=== PATIENT | male | born 1990 | race Caucasian/White ===

== ENCOUNTER 2019-01-10 22:44 | Emergency (ER) | payer OTHER ==
[2019-01-10 23:00] VITALS: BP 119/71; PULSE 69; TEMP 98.1; BMI 34.0
--- NOTE | 2019-01-10 23:52 | PDOC ---
Attending Attestation - HPI HPI: 01/11/19 00:03 The patient is a 28 year old male with no significant past medical history who presents to the emergency department with worsening lower left back mass. The patient states he endorses pain with palpation, movement, and putting weight on it. The patient states he has had this pain for the past year but has never been treated. The patient denies skin changes, midline back pain, incontinence night sweats, weight loss, or any other bodily lumps or rashes. The patient denies chest pain, shortness of breath, headache and dizziness. Denies fever, chills, nausea, vomit, diarrhea and constipation. Denies dysuria, frequency, urgency and hematuria. Allergies: NKDA Past surgical history: none reported Social history: None reported PCP: Kathryn Coffman - Physicial Exam PE: 01/11/19 00:04 GENERAL: Awake, alert, and fully oriented, in no acute distress HEAD: No signs of trauma EYES: PERRLA, EOMI, sclera anicteric, conjunctiva clear ENT: Auricles normal inspection, hearing grossly normal, nares patent, oropharynx clear without exudates. Moist mucosa NECK: Normal ROM, supple, no lymphadenopathy, JVD, or masses LUNGS: Breath sounds equal, clear to auscultation bilaterally. No wheezes, and no crackles HEART: Regular rate and rhythm, normal S1 and S2, no murmurs, rubs or gallops ABDOMEN: (+) L lower back mass. Soft, nontender, normoactive bowel sounds. No guarding, no rebound. No masses EXTREMITIES: Normal range of motion, no edema. No clubbing or cyanosis. No cords, erythema, or tenderness NEUROLOGICAL: Cranial nerves II through XII grossly intact. Normal speech, normal gait SKIN: Warm, Dry, normal turgor, no rashes or lesions noted. <Ansley Abbott - Last Filed: 01/11/19 00:03> - Resident Resident Name: Marai Berry - ED Attending Attestation I have performed the following: I have examined & evaluated the patient, The case was reviewed & discussed with the resident, I agree w/resident's findings & plan - Medical Decision Making 01/11/19 01:13 Patient Name: YUMIKO LOCKWOOD THIS IS A PRELIMINARY REPORT FROM IMAGING RN FIRST ASSISTANT DATE OF SERVICE: 2019-01-11 00:05:02 IMAGES: 32 EXAM: SOFT TISSUE CHEST AND BACK US HISTORY: Left lateral back mass now painful COMPARISON: None. FINDINGS: There is a 3 cm x 1.3 cm x 4.7 cm masslike focus in the area of concern in the left lateral back. I do not believe it can be characterized specifically on the ultrasound. CT, or MRI would be more accurate in more specifically characterizing the type of mass and its relationship to adjacent soft tissues. (If the mass suddenly became painful, there could be blood within it). Area is not cystic, and is likely a muscle spasm. Pt will be advised to get an MRI if the pain doesn't go away and if he feels worse. 01/11/19 01:20 Pt will go home with muscle relaxant and motrin. He was made aware that muscle relaxants cause drowsiness. <Maryjo Tuttle - Last Filed: 01/11/19 01:21> Attestations - Attestations 01/11/19 00:05 Documentation prepared by Ansley Abbott, acting as medical assistant per diem for Maryjo Tuttle MD <Ansley Abbott - Last Filed: 01/11/19 00:03>
[2019-01-10] MEDS ORDERED: ACETAMINOPHEN 500 MG TABLET (FP) PO ONE (23:55)
--- NOTE | 2019-01-10 23:55 | PDOC ---
History of Present Illness - General Chief Complaint: Pain, Acute Stated Complaint: CYST IN LOWER BACK Time Seen by Provider: 01/10/19 23:34 History Source: Patient Exam Limitations: No Limitations - History of Present Illness Initial Comments: 01/10/19 23:43 28YOM without PMH p/w left lower back cyst which is causing him pain with palpation, movement, and putting weight on it. Has had this for the past year but has never been treated for it or seen a doctor. Denies f/c/n/v/d/c, n/t/w focally, skin changes, midline back pain, incontinencenight sweats, weight loss , additional bodily lumps/bumps, or other concerning symptoms. Past History - Past Medical History Allergies/Adverse Reactions: Allergies Allergy/AdvReac Type Severity Reaction Status Date / Time No Known Allergies Allergy Verified 01/10/19 23:39 Home Medications: Ambulatory Orders Acetaminophen [Tylenol] 650 mg PO PRN 01/11/19 Methocarbamol [Robaxin -] 500 mg PO BID #60 tablet 01/11/19 CVA: No COPD: No - Immunization History Immunization Up to Date: Yes - Suicide/Smoking/Psychosocial Hx Smoking History: Never smoked Have you smoked in the past 12 months: No Information on smoking cessation initiated: No Hx Alcohol Use: No Drug/Substance Use Hx: No Substance Use Type: None Review of Systems - Review of Systems Able to Perform ROS?: Yes Comments:: 01/10/19 23:57 GEN: no fever, chills, malaise, night sweats, generalized weakness, or weight change HEENT: no ear pain, sore throat, vision change, or eye pain CV: no chest pain, palpitations, lightheadedness, syncope, or edema RESP: no cough, wheezing, or SOB GI: no abdominal pain, nausea, vomiting, diarrhea, constipation, or white/black/ bloody stool : no dysuria, hematuria, incontinence, retention, bleeding, or discharge MSK: no neck/back pain, muscle weakness/pain, or joint swelling/pain NEURO: no headache, seizure, vertigo, numbness, tingling, or focal weakness PSYCH: no substance use, no behavior change SKIN: left low back painful lump, no jaundice, no rash ROS otherwise negative except as noted in HPI *Physical Exam - Vital Signs Last Vital Signs Temp Pulse Resp BP Pulse Ox 98.1 F 69 20 119/71 100 01/10/19 22:59 01/10/19 22:59 01/10/19 22:59 01/10/19 22:59 01/10/19 22:59 - Physical Exam Comments: 01/10/19 23:55 GENERAL: well-appearing, A/Ox4, no distress, answers questions appropriately, primarily Polish-speaking, obese HEENT: PERRLA, EOMI, moist mucous membranes NECK/BACK: no midline ttp, no spinal stepoff or deformity, no hematoma, full ROM , neck supple CARDIOVASCULAR: regular rate/rhythm, normal S1S2, no MGR, strong peripheral pulses, capillary refill <2 seconds, extremities wwp, no edema LUNGS/RESPIRATORY: no respiratory distress, CTAB GI/ABDOMEN: symmetric [id number], normoactive BS, soft, no ttp, no midline pulsatile masses : no CVA tenderness EXTREMITIES: no muscle atrophy, no acute deformity SKIN: left lumbar paraspinous area with 2x2cm mobile slightly tender firm mass deep within the soft tissue but just superficial to the muscle, no overlying skin changes, skin otherwise warm and dry, no pallor, no jaundice, no rash, no bruising, no skin breakdown, no cuts, no lesions NEUROLOGICAL: GCS 15, CN II-XII grossly intact, 5/5 strength proximally and distally, no facial droop Medical Decision Making - Medical Decision Making 01/10/19 23:57 28YOM p/w left low back painful lump. No known h/o MRSA, no known immune compromise. Initial Vital Signs Temp Pulse Resp BP Pulse Ox 98.1 F 69 20 119/71 100 01/10/19 22:59 01/10/19 22:59 01/10/19 22:59 01/10/19 22:59 01/10/19 22:59 Exam: As noted in Physical Exam section. DDX IBNLT: most likely sebaceous cyst, muscle spasm, or possibly lymph node. Less likely abscess given the fact that the patient has had this for 1 year. Less likely lipoma as this mass is firm. Unlikely MRSA infection as the patient has not had this before, anglion cyst W/U ordered: US soft tissue TX ordered: Tylenol, Robaxin US/SOFT TISSUE CHEST AND BACK US Patient states left lateral back moving mass for years. Now painful. Ultrasound soft tissue of the chest and back Grayscale and color Doppler images of the left lateral side of the back, region of interest were obtained and submitted for evaluation. There is an oval-shaped superficial masslike density in the region of interest measuring 4.7 x 3 x 1.3 cm likely representing a lipoma. IMPRESSION: Likely a lipoma in the left lateral back, region of interest measuring 4.7 x 3 x 1.3 cm. Confirmation of its consistency with MRI or CT scan would be the study of choice for further evaluation considering the clinical history of new pain. Reassessment: Patient states feels much better, comfortable with plan to go home with PCP f/u. DISCHARGE E-Rx is sent to their pharmacy for Robaxin and they will take this and Tylenol prn pain/muscle spasm. Workup is not concerning for emergency-level pathology at this time. The Pt is appropriate for discharge with close outpatient follow up. They are comfortable with this plan and will follow up with their primary care provider in 1-3 days. We express the importance of PCP follow up next week to better characterize the back mass. Specific return precautions are discussed and they will come back to the ER if necessary. *DC/Admit/Observation/Transfer Diagnosis at time of Disposition: Mass of soft tissue - Discharge Dispostion Disposition: HOME Condition at time of disposition: Stable Decision to Admit order: No - Prescriptions Prescriptions: Methocarbamol [Robaxin -] 500 mg PO BID #60 tablet - Referrals Referrals: Kathryn Orozco [Primary Care Provider] - - Patient Instructions Additional Instructions: You were seen in the ER for a small mass in the soft tissue of your left lower back. We did an exam and an ultrasound, and it did show the soft tissue mass. We do not know what this is, but after our assessment, we do not believe you are having a medical emergency at this time, and we believe you are safe to go home right now. Please follow up with your primary care provider on Sunday. ( You absolutely need to follow up with your PCP because even though it is not an emergency that needs to be solved tonight, you still need to make sure this mass is nothing serious.) Call their clinic, tell them you were seen in the ER, and tell them you need a follow-up. If you have any new or worsening symptoms, please come back to the ER at any time (24 hours a day). If you are having severe or life threatening symptoms, or symptoms that make it unsafe to drive or have someone drive you, please call 911. - Post Discharge Activity
[2019-01-11] MEDS ORDERED: ACETAMINOPHEN 325 MG TABLET (FP) ONE
[2019-01-11] MEDS ORDERED: METHOCARBAMOL 500 MG TABLET PO ONE (00:01)
[2019-01-11] MEDS ORDERED: METHOCARBAMOL 500 MG TABLET ONE (00:14)
== END 2019-01-11 01:30 | disposition home or self-care (01) ==
LOC: JER 22:44
DX: D17.1 Benign lipomatous neoplasm of skin and subcutaneous tissue of trunk (principal)
CPT/HCPCS: 76604; 99281-25